=== PATIENT | female | born 1985 | race Caucasian/White ===

== ENCOUNTER 2017-12-28 03:35 | Inpatient (IN) | payer SELFPAY ==
[2017-12-28 04:04] LABS: Absolute Lymphocytes (CBC) 2.5 K/uL (0.7-4.9); Absolute Monocytes 0.9 K/uL (0.1-1.3); Absolute Neutrophil 5.8 K/uL (1.8-8.0); Eosinophils % 2.6 % (0-4.4); Hematocrit 35.1 % (36.0-45.0); Lymphocytes % 26.1 % (15.3-44.8); MCH 24.5 pg (27.0-35.0); MCV 77.1 fL (80-100); MPV 7.8 fL (7.6-11.3); Monocytes % 9.4 % (3.3-12.3); RBC Red Blood Cell Count 4.56 M/uL (3.86-4.86)
[2017-12-28] MEDS ORDERED: ONDANSETRON 4 MG/2 ML VIAL ONE (04:20)
[2017-12-28 04:26] LABS: ALT/SGPT 21 U/L (12-78); AST/SGOT 26 U/L (15-37); Albumin 3.8 g/dL (3.4-5.0); Alkaline Phosphatase 107 U/L (45-117); BUN Blood Urea Nitrogen 9 mg/dL (7-18); Bicarbonate 25 mmol/L (21-32); Bilirubin Direct 0.2 mg/dL (0-0.2); Bilirubin Total 0.8 mg/dL (0.2-1.0); Glucose Level 150 mg/dL (74-106); Lipase 4996 U/L (73-393); Potassium 3.2 mmol/L (3.5-5.1); Protein, Total 8.4 g/dL (6.4-8.2); Sodium Level 136 mmol/L (136-145)
[2017-12-28] MEDS ORDERED: DIPHENHYDRAMINE 50 MG/ML VIAL ONE (04:36)
--- NOTE | 2017-12-28 07:38 | EDPHYS ---
Physician Documentation [facility] Name: Kathy Mendoza Age: 32 yrs Sex: Female : 1985 Arrival Date: 12/28/2017 Time: 03:36 Bed 8 Private MD: None, None ED Physician Jayson Lobo HPI: 12/28 07:34 This 32 yrs old Female presents to ER via EMS with complaints of Abdominal ps1 Pain. 07:34 pt is long standing alcoholic with history of pancreatitis. Patient stopped drinking 48 ps1 hours ago and went into rehab. She started having LUQ and epigastric pain tonight. Pain rated as severe. Radiating to back. Associated with nausea. Feels like previous episodes of pancreatitis. 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 tw2 Historical: - Allergies: 03:40 Latex, Natural Rubber; fc 03:40 Iodine; fc 03:40 PENICILLINS; fc - Home Meds: 03:40 lithium carbonate 300 mg Oral TbER 1 tab 3 times per day [Active]; gabapentin 600 mg fc oral tab 1 tab daily [Active]; naltrexone 50 mg oral tab 1 tab once daily [Active]; - PMHx: 03:40 ETOH abuse; Pancreatitis; Bipolar disorder; fc - PSHx: 03:40 ; Gastric Bypass; fc - Immunization history:: Last tetanus immunization: unknown. - Social history:: Smoking status: Patient uses tobacco products, smokes one-half pack cigarettes per day. - Ebola Screening: : Patient negative for fever greater than or equal to 101.5 degrees Fahrenheit, and additional compatible Ebola Virus Disease symptoms Patient denies exposure to infectious person Patient denies travel to an Ebola-affected area in the 21 days before illness onset. ROS: 07:34 Constitutional: Negative for fever, chills, and weight loss, Eyes: Negative for injury, ps1 pain, redness, and discharge, Cardiovascular: Negative for chest pain, palpitations, and edema, Respiratory: Negative for shortness of breath, cough, wheezing, and pleuritic chest pain. 07:34 Back: Negative for injury and pain, MS/Extremity: Negative for injury and deformity, Skin: Negative for injury, rash, and discoloration, Neuro: Negative for headache, weakness, numbness, tingling, and seizure. 07:34 Abdomen/GI: Positive for abdominal pain, nausea. Exam: 07:34 Constitutional: This is a well developed, well nourished patient who is awake, alert, ps1 and in no acute distress. Head/Face: Normocephalic, atraumatic. Eyes: Pupils equal round and reactive to light, extra-ocular motions intact. Lids and lashes normal. Conjunctiva and sclera are non-icteric and not injected. Chest/axilla: Normal chest wall appearance and motion. Nontender with no deformity. No lesions are appreciated. Cardiovascular: Regular rate and rhythm. No gallops, murmurs, or rubs. Normal PMI, no JVD. No pulse deficits. Respiratory: Lungs have equal breath sounds bilaterally, clear to auscultation and percussion. No rales, rhonchi or wheezes noted. No increased work of breathing, no retractions or nasal flaring. 07:34 MS/ Extremity: Pulses equal, no cyanosis. Neurovascular intact. Full, normal range of motion. Neuro: Awake and alert, GCS 15, oriented to person, place, time, and situation. Cranial nerves II-XII grossly intact. Sensory grossly intact. 07:34 Abdomen/GI: Inspection: abdomen appears normal, Bowel sounds: normal, Palpation: moderate abdominal tenderness, in the epigastric area and left upper quadrant. Vital Signs: 03:40 BP 154 / 111; Pulse 75; Resp 18; Temp 97.6(O); Pulse Ox 100% on R/A; Weight 74.84 kg fc (R); Height 5 ft. 6 in. (167.64 cm) (R); Pain 10/10; 04:39 BP 162 / 125; Pulse 87; Resp 20; Pulse Ox 99% on R/A; Pain 10/10; ak1 05:30 BP 152 / 97; Pulse 56; Resp 18; Pulse Ox 100% on R/A; ea 07:00 BP 178 / 100; Pulse 88; Resp 17; Pulse Ox 99% ; tw2 08:21 BP 172 / 116; Pulse 83; Resp 17; Pulse Ox 100% on R/A; tw2 09:22 BP 148 / 93; Pulse 60; Resp 17; Pulse Ox 100% on R/A; tw2 10:30 BP 162 / 86; Pulse 60; Resp 17; Pulse Ox 100% on R/A; tw2 11:26 BP 150 / 80; Pulse 61; Resp 17; Pulse Ox 100% on R/A; tw2 03:40 Body Mass Index 26.63 (74.84 kg, 167.64 cm) MDM: 04:02 Patient medically screened. ps1 07:34 Data reviewed: vital signs, nurses notes. ED course: pain addressed. lipase and CT c/w ps1 acute pancreatitis. Admitted to Dr. Castanon.. 12/28 03:48 Order name: Hepatic Function; Complete Time: 04:34 ps1 12/28 03:48 Order name: Basic Metabolic Panel; Complete Time: 04:34 ps1 12/28 03:48 Order name: CBC with Diff; Complete Time: 04:34 ps1 12/28 03:48 Order name: Lipase; Complete Time: 04:34 ps1 12/28 03:48 Order name: Urine Microscopic Only ps1 12/28 04:35 Order name: CT Abd/Pelvis - Without Cont ps1 12/28 03:48 Order name: IV Saline Lock; Complete Time: 03:53 ps1 12/28 03:48 Order name: Labs collected and sent; Complete Time: 03:53 ps1 Administered Medications: 04:22 Drug: Zofran 4 mg Route: IVP; Site: right antecubital; ak1 04:38 Follow up: Response: No adverse reaction ak1 04:38 Drug: Benadryl 50 mg Route: IVP; Site: right antecubital; ak1 04:47 Follow up: Response: No adverse reaction ak1 08:16 Drug: Phenergan 25 mg Route: IVP; Site: right antecubital; tw2 09:19 Follow up: Response: No adverse reaction; Nausea is decreased tw2 11:26 Drug: morphine 2 mg Route: IVP; Site: right antecubital; tw2 11:52 Follow up: Response: No adverse reaction tw2 Disposition: 12/28/17 07:38 Hospitalization ordered by Brooke Castanon for Inpatient Admission. Preliminary diagnosis is Alcohol induced acute pancreatitis. - Bed requested for Telemetry/MedSurg (Inpatient). - Status is Inpatient Admission. tw2 - Condition is Fair. - Problem is an acute exacerbation. - Symptoms have improved. UTI on Admission? No Signatures: Dispatcher [employer] EDKourtney Salinas RN RN dw Chretien, Felicia, RN RN fc Krenek, Amber, RN RN ak1 Viji Marie RN RN tw2 Jayson Lobo MD MD ps1 Corrections: (The following items were deleted from the chart) 11:46 07:38 Hospitalization Ordered by Brooke Castanon MD for Inpatient Admission. Preliminary dw diagnosis is Alcohol induced acute pancreatitis. Bed requested for Telemetry/MedSurg (Inpatient). Status is Inpatient Admission. Condition is Fair. Problem is an acute exacerbation. Symptoms have improved. UTI on Admission? No. ps1 12:23 11:46 12/28/2017 07:38 Hospitalization Ordered by Brooke Castanon MD for Inpatient tw2 Admission. Preliminary diagnosis is Alcohol induced acute pancreatitis. Bed requested for Telemetry/MedSurg (Inpatient). Status is Inpatient Admission. Condition is Fair. Problem is an acute exacerbation. Symptoms have improved. UTI on Admission? No. dw
--- NOTE | 2017-12-28 07:38 | ER ---
Nurse's Notes [facility] Name: Kathy Mendoza Age: 32 yrs Sex: Female : 1985 Arrival Date: 12/28/2017 Time: 03:36 Bed 8 Private MD: None, None Diagnosis: Alcohol induced acute pancreatitis Presentation: 12/28 03:36 Presenting complaint: EMS states: that the patient is complaining of abd pain that fc radiates to her back. Also having nausea and vomiting. Pt has been without ETOH x 48 hrs. Transition of care: patient was not received from another setting of care. Onset of symptoms was December 28, 2017. Risk Assessment: Do you want to hurt yourself or someone else? Patient reports no desire to harm self or others. Initial Sepsis Screen: Does the patient meet any 2 criteria? No. Patient's initial sepsis screen is negative. Does the patient have a suspected source of infection? No. Patient's initial sepsis screen is negative. Care prior to arrival: None. 03:36 Method Of Arrival: EMS: [facility] 03:36 Acuity: JEFFY 3 fc Triage Assessment: 03:41 General: Appears uncomfortable, unkempt, Behavior is cooperative, appropriate for age, fc anxious. Pain: Complains of pain in abdomen Pain currently is 10 out of 10 on a pain scale. Quality of pain is described as aching, crampy, sharp, Is continuous. EENT: No deficits noted. Neuro: Level of Consciousness is awake, alert, obeys commands, Oriented to person, place, time, situation. Cardiovascular: No deficits noted. Respiratory: No deficits noted. GI: Reports lower abdominal pain, upper abdominal pain, nausea, vomiting. : No deficits noted. Derm: Skin is pink, warm \T\ dry. Musculoskeletal: Circulation, motion, and sensation intact. Capillary refill < 3 seconds, Range of motion: intact in all extremities. 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 tw2 Historical: - Allergies: 03:40 Latex, Natural Rubber; fc 03:40 Iodine; fc 03:40 PENICILLINS; fc - Home Meds: 03:40 lithium carbonate 300 mg Oral TbER 1 tab 3 times per day [Active]; gabapentin 600 mg fc oral tab 1 tab daily [Active]; naltrexone 50 mg oral tab 1 tab once daily [Active]; - PMHx: 03:40 ETOH abuse; Pancreatitis; Bipolar disorder; fc - PSHx: 03:40 ; Gastric Bypass; fc - Immunization history:: Last tetanus immunization: unknown. - Social history:: Smoking status: Patient uses tobacco products, smokes one-half pack cigarettes per day. - Ebola Screening: : Patient negative for fever greater than or equal to 101.5 degrees Fahrenheit, and additional compatible Ebola Virus Disease symptoms Patient denies exposure to infectious person Patient denies travel to an Ebola-affected area in the 21 days before illness onset. Screenin:42 Abuse screen: Denies threats or abuse. Nutritional screening: No deficits noted. fc Tuberculosis screening: No symptoms or risk factors identified. 03:49 Fall Risk None identified. ak1 Assessment: 03:48 General: Appears in no apparent distress. uncomfortable, Behavior is cooperative, ak1 anxious. Pain: Complains of pain in abdomen. Neuro: No deficits noted. Cardiovascular: No deficits noted. Respiratory: No deficits noted. GI: Bowel sounds present X 4 quads. Abd is soft and non tender X 4 quads. : No signs and/or symptoms were reported regarding the genitourinary system. EENT: No signs and/or symptoms were reported regarding the EENT system. Derm: No signs and/or symptoms reported regarding the dermatologic system. Musculoskeletal: No signs and/or symptoms reported regarding the musculoskeletal system. 05:10 Reassessment: Patient appears in no apparent distress at this time. No changes from ak1 previously documented assessment. Patient is alert, oriented x 3, equal unlabored respirations, skin warm/dry/pink. pt waiting to go to CT. 05:57 Reassessment: Patient appears in no apparent distress at this time. pt up and ak1 ambulating to restroom with steady gait X2 to try for urine sample, no success at this time. 07:00 Reassessment: Patient appears in no apparent distress at this time. Patient and/or tw2 family updated on plan of care and expected duration. Pain level reassessed. Patient is alert, oriented x 3, equal unlabored respirations, skin warm/dry/pink. 08:23 Reassessment: Patient appears in no apparent distress at this time. Patient and/or tw2 family updated on plan of care and expected duration. Pain level reassessed. Patient is alert, oriented x 3, equal unlabored respirations, skin warm/dry/pink. pt c/o nauseousness at this time. 09:23 Reassessment: Patient appears in no apparent distress at this time. No changes from tw2 previously documented assessment. Patient and/or family updated on plan of care and expected duration. Pain level reassessed. Patient is alert, oriented x 3, equal unlabored respirations, skin warm/dry/pink. 10:30 Reassessment: Patient appears in no apparent distress at this time. No changes from tw2 previously documented assessment. Patient and/or family updated on plan of care and expected duration. Pain level reassessed. Patient is alert, oriented x 3, equal unlabored respirations, skin warm/dry/pink. 11:26 Reassessment: Patient appears in no apparent distress at this time. No changes from tw2 previously documented assessment. Patient and/or family updated on plan of care and expected duration. Pain level reassessed. Patient is alert, oriented x 3, equal unlabored respirations, skin warm/dry/pink. Vital Signs: 03:40 BP 154 / 111; Pulse 75; Resp 18; Temp 97.6(O); Pulse Ox 100% on R/A; Weight 74.84 kg fc (R); Height 5 ft. 6 in. (167.64 cm) (R); Pain 10/10; 04:39 BP 162 / 125; Pulse 87; Resp 20; Pulse Ox 99% on R/A; Pain 10/10; ak1 05:30 BP 152 / 97; Pulse 56; Resp 18; Pulse Ox 100% on R/A; ea 07:00 BP 178 / 100; Pulse 88; Resp 17; Pulse Ox 99% ; tw2 08:21 BP 172 / 116; Pulse 83; Resp 17; Pulse Ox 100% on R/A; tw2 09:22 BP 148 / 93; Pulse 60; Resp 17; Pulse Ox 100% on R/A; tw2 10:30 BP 162 / 86; Pulse 60; Resp 17; Pulse Ox 100% on R/A; tw2 11:26 BP 150 / 80; Pulse 61; Resp 17; Pulse Ox 100% on R/A; tw2 03:40 Body Mass Index 26.63 (74.84 kg, 167.64 cm) ED Course: 03:36 Patient arrived in ED. fc 03:36 None, None is Private Physician. fc 03:38 Triage completed. fc 03:41 Arm band placed on Patient placed in an exam room, on a stretcher. fc 03:42 Patient has correct armband on for positive identification. Bed in low position. Call fc light in reach. Side rails up X2. 03:47 Jayson Lobo MD is Attending Physician. ps1 03:49 Inserted saline lock: 20 gauge in right forearm, using aseptic technique. ,using ak1 aseptic technique. placed by Marisol Gill RN Blood collected. 03:50 Edie Mckenzie, TANNA is Primary Nurse. ak1 04:39 No provider procedures requiring assistance completed. ak1 06:39 CT Abd/Pelvis - Without Cont In Process Unspecified. EDMS 07:17 Primary Nurse role handed off by Edie Mckenzie RN tw2 07:17 Viji Marie RN is Primary Nurse. tw2 07:37 Brooke Castanon MD is Hospitalizing Provider. ps1 11:50 Patient admitted, IV remains in place. tw2 11:51 Report given to TANNA Ravi on 2nd floor, need for urine analysis as outstanding from ER. tw2 Administered Medications: 04:22 Drug: Zofran 4 mg Route: IVP; Site: right antecubital; ak1 04:38 Follow up: Response: No adverse reaction ak1 04:38 Drug: Benadryl 50 mg Route: IVP; Site: right antecubital; ak1 04:47 Follow up: Response: No adverse reaction ak1 08:16 Drug: Phenergan 25 mg Route: IVP; Site: right antecubital; tw2 09:19 Follow up: Response: No adverse reaction; Nausea is decreased tw2 11:26 Drug: morphine 2 mg Route: IVP; Site: right antecubital; tw2 11:52 Follow up: Response: No adverse reaction tw2 Outcome: 07:38 Decision to Hospitalize by Provider. ps1 11:50 Admitted to Med/surg accompanied by tech, via wheelchair, room 203, with chart, Report tw2 called to TANNA Ravi 11:50 Condition: stable 11:50 Instructed on the need for admit. 12:23 Patient left the ED. tw2 Signatures: Dispatcher [employer] Mary Reilly RN RN Edie Mckenzie RN RN ak1 Viji Marie, RN RN tw2 Marisol Barlow, RN RN Jayson Hernandez MD MD ps1
[2017-12-28] MEDS ORDERED: PROMETHAZINE 25 MG/ML VIAL ONE (08:15)
--- NOTE | 2017-12-28 10:14 | RAD REPORT ---
EXAM DESCRIPTION: CT - Abdomen Pelvis Wo Contrast - 12/28/2017 10:06 am CLINICAL HISTORY: Abdominal pain generalized abdominal pain surgery date 6+ months gastric bypass n ausea COMPARISON: None TECHNIQUE: Computed axial tomography of the abdomen and pelvis was obtained. IV and oral contrast we re not requested. A preliminary report was generated by [facility] and reviewed prior to this dictation All CT scans are performed using dose optimization technique as appropriate and may include automated exposure control or mA/KV adjustment according to patient size. FINDINGS: The evaluation of solid organs, vessels and bowel is limited secondary to the lack of con trast administration. The pancreas is inhomogeneous. A moderate stranding is present within the peripancreatic fat. A pseud ocyst is not seen. The gallbladder has been removed The liver, spleen, adrenals are normal. Tiny umbilical hernia is present. Postsurgical changes of a gastric bypass are present The appendix is normal. There is no evidence of diverticulitis. IMPRESSION: Moderate pancreatitis
[2017-12-28] MEDS ORDERED: MORPHINE 4 MG/ML SYR ONE (11:25)
[2017-12-28] MEDS: ONDANSETRON 4 MG/2 ML VIAL IV PRN ×2 (12:18→20:58)
[2017-12-28] MEDS: NA CHLORIDE 0.9% 1,000 ML IV SCH (12:18)
[2017-12-28 12:22] VITALS: BMI 28.3
[2017-12-28] MEDS: MORPHINE 4 MG/ML SYR IV PRN ×2 (15:02→20:58)
[2017-12-28] MEDS: KCL 20 MEQ/100 mL IVPB 20 MEQ/100 ML BAG IV SCH ×2 (15:02→21:39)
--- NOTE | 2017-12-28 17:31 | P.HP ---
Certification for Inpatient Patient admitted to: Inpatient With expected LOS: >2 Midnights Patient will require the following post-hospital care: None Practitioner: I am a practitioner with admitting privileges, knowledge of patient current condition, hospital course, and medical plan of care. Services: Services provided to patient in accordance with Admission requirements found in Title 42 Section 412.3 of the Code of Federal Regulations Patient History Date of Service: 12/28/17 Primary Care Provider: OOT Reason for admission: Abd pain History of Present Illness: This is a 32-year-old female with significant past medical history of alcohol abuse and chronic pancreatitis who presented to the ED complaining of having some epigastric pain medicine vomiting that started last night. Patient stated that she has been trying to get into alcohol rehab program and has quit drinking about 48 hr ago. However last night she started having some excruciating epigastric pain along with nausea and vomiting. Patient states that she has similar symptoms in the past and was diagnosed with pancreatitis and was treated with IV fluids and nausea medication. Patient denies having any fever chills chest pain or shortness of breath at this time. Allergies iodine Allergy (Verified 12/28/17 08:31) Itching Latex, Natural Rubber Allergy (Verified 12/28/17 08:31) Itching Penicillins Allergy (Verified 12/28/17 08:31) Itching Home Medications: Gabapentin [Neurontin] 600 mg PO DAILY 12/28/17 [place] Carbonate [Lithotabs 300MG] 300 mg PO TID 12/28/17 Naltrexone HCl 50 mg PO DAILY 12/28/17 - Past Medical/Surgical History Has patient received pneumonia vaccine in the past: No Diabetic: No -: ETOH Abuse -: Pancreatitis -: Bipolar Disorder -: -: Gastric Bypass - Social History Smoking Status: Current some day smoker Alcohol use: Yes CD- Drugs: No Caffeine use: Yes Place of Residence: Homeless Review of Systems General: As per HPI Physical Examination - Vital Signs Temperature: 97.9 F Blood Pressure: 144/78 Pulse: 83 Respirations: 17 Pulse Ox (%): 99 - Physical Exam General: Alert, In no apparent distress, Oriented x3 HEENT: Atraumatic, PERRLA, Mucous membr. moist/pink, EOMI, Sclerae nonicteric Neck: Supple, 2+ carotid pulse no bruit, No LAD, Without JVD or thyroid abnormality Respiratory: Clear to auscultation bilaterally, Normal air movement Cardiovascular: Regular rate/rhythm, Normal S1 S2 Gastrointestinal: Normal bowel sounds, Tenderness Musculoskeletal: No tenderness Integumentary: No rashes Neurological: Normal speech, Normal strength at 5/5 x4 extr, Normal tone Lymphatics: No axilla or inguinal lymphadenopathy - Studies Laboratory Data (last 24 hrs) 12/28/17 03:46: WBC 9.5, Hgb 11.2 L, Hct 35.1 L, Plt Count 372 12/28/17 03:46: Sodium 136, Potassium 3.2 L, BUN 9, Creatinine 0.70, Glucose 150 H, Total Bilirubin 0.8, AST 26, ALT 21, Alkaline Phosphatase 107, Lipase 4996 H Assessment and Plan - Problems (Diagnosis) (1) Alcohol induced acute pancreatitis Current Visit: Yes Status: Acute Plan: Abd pain most likely 2.2 to alcohol induced acute pancreatitis -IV fluids, pain mgmt and NPO for now -GI consulted. Appreciated Reccs -Lipase is > 4000 Qualifiers: Acute pancreatitis complication: no infection or necrosis Qualified Code(s) : K85.20 - Alcohol induced acute pancreatitis without necrosis or infection (2) Alcohol abuse Current Visit: Yes Status: Acute Plan: Alcohol abuse. Wants to enroll in rehab. States last drink 48hrs ago -ativan PRN For alcohol WD Discharge Plan: Home Plan to discharge in: 48 Hours - Advance Directives Does patient have a Living Will: No Does patient have a Durable POA for Healthcare: No - Code Status/Comfort Care Code Status Assessed: Yes Critical Care: No
[2017-12-28] MEDS: LORazepam 2 MG/ML VIAL IV PRN (21:37)
[2017-12-29] MEDS: ONDANSETRON 4 MG/2 ML VIAL IV PRN ×4 (00:19→22:27)
[2017-12-29] MEDS: NA CHLORIDE 0.9% 1,000 ML IV SCH ×5 (00:24→23:48)
[2017-12-29] MEDS ORDERED: METOPROLOL TARTRATE 5 MG/5 ML INJ IV PRN ×2 (00:34→00:57)
[2017-12-29] MEDS: LORazepam 2 MG/ML VIAL IV PRN ×7 (01:02→22:33)
[2017-12-29] MEDS: METOPROLOL TARTRATE 5 MG/5 ML INJ IV SCH ×6 (01:37→20:22)
[2017-12-29] MEDS ORDERED: METOPROLOL TARTRATE 5 MG/5 ML INJ IV STA (02:41)
[2017-12-29] MEDS: MORPHINE 4 MG/ML SYR IV PRN ×4 (03:01→22:27)
[2017-12-29 06:03] LABS: Absolute Lymphocytes (CBC) 1.4 K/uL (0.7-4.9); Absolute Monocytes 1.1 K/uL (0.1-1.3); Absolute Neutrophil 11.4 K/uL (1.8-8.0); Basophils % 0.4 % (0-1.3); Eosinophils % 0.9 % (0-4.4); Hematocrit 35.6 % (36.0-45.0); Lymphocytes % 9.6 % (15.3-44.8); MCH 24.6 pg (27.0-35.0); MCV 78.2 fL (80-100); MPV 7.9 fL (7.6-11.3); RBC Red Blood Cell Count 4.55 M/uL (3.86-4.86)
[2017-12-29] MEDS: chlordiazePOXIDE HCl 5 MG CAP PO SCH ×4 (06:14→23:54)
[2017-12-29 06:20] LABS: ALT/SGPT 17 U/L (12-78); AST/SGOT 19 U/L (15-37); Albumin 3.5 g/dL (3.4-5.0); Alkaline Phosphatase 90 U/L (45-117); BUN Blood Urea Nitrogen 8 mg/dL (7-18); Bicarbonate 24 mmol/L (21-32); Bilirubin Total 0.6 mg/dL (0.2-1.0); Glucose Level 122 mg/dL (74-106); Phosphorus 1.7 mg/dL (2.5-4.9); Potassium 3.6 mmol/L (3.5-5.1); Protein, Total 7.5 g/dL (6.4-8.2); Sodium Level 136 mmol/L (136-145)
[2017-12-29] MEDS ORDERED: POTASSIUM PHOS IN 0.9 % NACL 15 MMOL/250 ML BAG IV ONE (06:27)
[2017-12-29] MEDS ORDERED: KCL 20 MEQ/100 mL IVPB 20 MEQ/100 ML BAG IV SCH (07:00)
[2017-12-29 08:44] LABS: Urine Appearance CLOUDY; Urine Blood 1+ (NEG); Urine Color DK YELLOW; Urine Glucose NEGATIVE (NEG); Urine Protein 1+ (NEG); Urine Specific Gravity >=1.030 (1.005-1.030); Urine Urobilinogen 0.2 mg/dL (0.2-1.0)
[2017-12-29] MEDS ORDERED: HOME MED 1 EA UNK (Gabapentin [Neurontin] 600 MG) PO SCH (09:00)
[2017-12-29 09:19] LABS: Urine Bilirubin NEGATIVE (NEG); Urine Microscopic Reflex ORDER UMIC
[2017-12-29 09:27] LABS: Urine Bacteria 20-50 /HPF (<20); Urine Culture Reflex Order REFLEXED; Urine Mucus 2+ /HPF (NONE SEEN)
[2017-12-29] MEDS: LITHIUM CARBONATE 300 MG TAB PO SCH ×3 (09:58→20:22)
[2017-12-29] MEDS: GABAPENTIN 300 MG CAP PO SCH (09:59)
--- NOTE | 2017-12-29 12:16 | P.PN ---
Subjective Date of Service: 12/29/17 Primary Care Provider: ILDEFONSO Chief Complaint: Abd pain Patient seen and examined at bedside with RN. Case reviewed. Chart reviewed. Patient currently is complaining of having some abdominal pain. Patient also overnight had severe alcohol withdrawal and was started on Librium. Review of Systems General: As per HPI Physical Examination - Vital Signs Temperature: 98.1 F Blood Pressure: 173/106 Pulse: 91 Respirations: 20 Pulse Ox (%): 100 - Physical Exam General: Alert, In no apparent distress HEENT: Atraumatic, PERRLA, EOMI Neck: Supple, JVD not distended Respiratory: Clear to auscultation bilaterally, Normal air movement Cardiovascular: Regular rate/rhythm, Normal S1 S2 Gastrointestinal: Normal bowel sounds, Tenderness Musculoskeletal: No tenderness Integumentary: No rashes Neurological: Normal speech, Normal tone, Normal affect Lymphatics: No axilla or inguinal lymphadenopathy - Studies Medications List Reviewed: Yes Assessment & Plan - Problems (Diagnosis) (1) Alcohol induced acute pancreatitis Current Visit: Yes Status: Acute Plan: Abd pain most likely 2.2 to alcohol induced acute pancreatitis -IV fluids, pain mgmt and NPO for now -GI consulted. Appreciated Reccs -Lipase is > 4000 Qualifiers: Acute pancreatitis complication: no infection or necrosis Qualified Code(s) : K85.20 - Alcohol induced acute pancreatitis without necrosis or infection (2) Alcohol abuse Current Visit: Yes Status: Acute Plan: Alcohol abuse. Wants to enroll in rehab. States last drink 48hrs ago -ativan PRN For alcohol WD -Now on Librium as well Discharge Plan: Home Plan to discharge in: 24 Hours - Code Status/Comfort Care Code Status Assessed: Yes Critical Care: No
[2017-12-30] MEDS: METOPROLOL TARTRATE 5 MG/5 ML INJ IV SCH ×6 (00:48→20:40)
[2017-12-30] MEDS: LORazepam 2 MG/ML VIAL IV PRN ×4 (02:43→13:48)
[2017-12-30] MEDS: MORPHINE 4 MG/ML SYR IV PRN ×2 (04:39→11:28)
[2017-12-30] MEDS: NA CHLORIDE 0.9% 1,000 ML IV SCH ×4 (04:41→23:20)
[2017-12-30] MEDS: ONDANSETRON 4 MG/2 ML VIAL IV PRN ×2 (04:44→13:47)
[2017-12-30 04:57] LABS: Absolute Lymphocytes (CBC) 1.4 K/uL (0.7-4.9); Absolute Monocytes 1.1 K/uL (0.1-1.3); Absolute Neutrophil 9.3 K/uL (1.8-8.0); Basophils % 0.6 % (0-1.3); Eosinophils % 1.9 % (0-4.4); Hematocrit 34.6 % (36.0-45.0); Lymphocytes % 11.9 % (15.3-44.8); MCH 24.2 pg (27.0-35.0); MCV 77.7 fL (80-100); MPV 7.8 fL (7.6-11.3); Monocytes % 9.3 % (3.3-12.3); RBC Red Blood Cell Count 4.45 M/uL (3.86-4.86)
[2017-12-30 05:23] LABS: ALT/SGPT 12 U/L (12-78); AST/SGOT 15 U/L (15-37); Albumin 3.2 g/dL (3.4-5.0); Alkaline Phosphatase 85 U/L (45-117); BUN Blood Urea Nitrogen 4 mg/dL (7-18); Bicarbonate 24 mmol/L (21-32); Bilirubin Total 0.6 mg/dL (0.2-1.0); Glucose Level 97 mg/dL (74-106); Lipase 878 U/L (73-393); Magnesium 1.7 mg/dL (1.8-2.4); Phosphorus 1.6 mg/dL (2.5-4.9); Potassium 3.8 mmol/L (3.5-5.1); Protein, Total 7.1 g/dL (6.4-8.2); Sodium Level 138 mmol/L (136-145)
[2017-12-30] MEDS: chlordiazePOXIDE HCl 5 MG CAP PO SCH ×4 (05:41→23:20)
[2017-12-30] MEDS ORDERED: MAGNESIUM SULFATE 1 gm IVPB 1 GM/100 ML BAG IV ONE (05:54)
[2017-12-30] MEDS ORDERED: KCL 20 MEQ/100 mL IVPB 20 MEQ/100 ML BAG IV SCH (09:00)
[2017-12-30] MEDS: GABAPENTIN 300 MG CAP PO SCH (09:26)
[2017-12-30] MEDS: LITHIUM CARBONATE 300 MG TAB PO SCH ×3 (09:27→20:40)
--- NOTE | 2017-12-30 14:51 | P.PN ---
Subjective Date of Service: 12/30/17 Primary Care Provider: ILDEFONSO Chief Complaint: Abd pain Patient seen and examined at bedside with RN. Case reviewed. Chart reviewed. Patient currently is complaining of having some nasuea. No complains to offer overnight. Review of Systems General: As per HPI Physical Examination - Vital Signs Temperature: 98.1 F Blood Pressure: 131/81 Pulse: 99 Respirations: 20 Pulse Ox (%): 100 - Physical Exam General: Alert, In no apparent distress HEENT: Atraumatic, PERRLA, EOMI Neck: Supple, JVD not distended Respiratory: Clear to auscultation bilaterally, Normal air movement Cardiovascular: Regular rate/rhythm, Normal S1 S2 Gastrointestinal: Normal bowel sounds, No tenderness Musculoskeletal: No tenderness Integumentary: No rashes Neurological: Normal speech, Normal tone, Normal affect Lymphatics: No axilla or inguinal lymphadenopathy - Studies Medications List Reviewed: Yes Assessment & Plan - Problems (Diagnosis) (1) Alcohol induced acute pancreatitis Current Visit: Yes Status: Acute Plan: Abd pain most likely 2.2 to alcohol induced acute pancreatitis -IV fluids, pain mgmt with PO meds now -Advance diet to CLD -GI consulted. Appreciated Reccs -Lipase is 800 Qualifiers: Acute pancreatitis complication: no infection or necrosis Qualified Code(s) : K85.20 - Alcohol induced acute pancreatitis without necrosis or infection (2) Alcohol abuse Current Visit: Yes Status: Acute Plan: Alcohol abuse. Wants to enroll in rehab. States last drink 48hrs ago -ativan PRN For alcohol WD -Now on Librium as well Discharge Plan: Home Plan to discharge in: 24 Hours - Code Status/Comfort Care Code Status Assessed: Yes Critical Care: No
[2017-12-30] MEDS: TRAMADOL HCL 50 MG TAB PO PRN ×2 (15:59→22:01)
[2017-12-30 19:40] VITALS: O2SAT 98
[2017-12-31] MEDS: NA CHLORIDE 0.9% 1,000 ML IV SCH ×4 (01:00→14:20)
[2017-12-31] MEDS: METOPROLOL TARTRATE 5 MG/5 ML INJ IV SCH ×4 (01:52→12:55)
[2017-12-31] MEDS: TRAMADOL HCL 50 MG TAB PO PRN ×2 (04:48→10:37)
[2017-12-31 05:01] LABS: Absolute Lymphocytes (CBC) 1.2 K/uL (0.7-4.9); Absolute Neutrophil 5.6 K/uL (1.8-8.0); Basophils % 0.6 % (0-1.3); Eosinophils % 3.4 % (0-4.4); Hematocrit 28.9 % (36.0-45.0); MCH 24.8 pg (27.0-35.0); MPV 7.8 fL (7.6-11.3); Monocytes % 12.2 % (3.3-12.3); RBC Red Blood Cell Count 3.71 M/uL (3.86-4.86)
[2017-12-31 05:13] LABS: ALT/SGPT 22 U/L (12-78); AST/SGOT 31 U/L (15-37); Albumin 2.6 g/dL (3.4-5.0); Alkaline Phosphatase 78 U/L (45-117); BUN Blood Urea Nitrogen 4 mg/dL (7-18); Bicarbonate 25 mmol/L (21-32); Bilirubin Total 0.3 mg/dL (0.2-1.0); Glucose Level 89 mg/dL (74-106); Magnesium 1.7 mg/dL (1.8-2.4); Phosphorus 1.9 mg/dL (2.5-4.9); Potassium 3.3 mmol/L (3.5-5.1); Sodium Level 140 mmol/L (136-145)
[2017-12-31] MEDS: chlordiazePOXIDE HCl 5 MG CAP PO SCH ×2 (05:33→12:08)
[2017-12-31] MEDS ORDERED: MAGNESIUM SULFATE 1 gm IVPB 1 GM/100 ML BAG IV ONE ×2 (06:45→07:30)
[2017-12-31] MEDS ORDERED: KCL 20 MEQ/100 mL IVPB 20 MEQ/100 ML BAG IV SCH (08:00)
[2017-12-31] MEDS: LITHIUM CARBONATE 300 MG TAB PO SCH ×2 (09:06→14:39)
[2017-12-31] MEDS: GABAPENTIN 300 MG CAP PO SCH (09:06)
[2017-12-31] MEDS ORDERED: POTASSIUM PHOS IN 0.9 % NACL 15 MMOL/250 ML BAG IV ONE (12:00)
--- NOTE | 2017-12-31 12:06 | P.DS ---
Admission Date: 12/28/17 Discharge Date: 12/31/17 Primary Care Provider: OOT Disposition: ROUTINE DISCHARGE Discharge Condition: GOOD Reason for Admission: Abd pain Consultations: GI - Problems (1) Alcohol induced acute pancreatitis Current Visit: Yes Status: Resolved Qualifiers: Acute pancreatitis complication: no infection or necrosis Qualified Code(s) : K85.20 - Alcohol induced acute pancreatitis without necrosis or infection (2) Alcohol abuse Current Visit: Yes Status: Chronic Brief History of Present Illness: This is a 32-year-old female with significant past medical history of alcohol abuse and chronic pancreatitis who presented to the ED complaining of having some epigastric pain medicine vomiting that started last night. Patient stated that she has been trying to get into alcohol rehab program and has quit drinking about 48 hr ago. However last night she started having some excruciating epigastric pain along with nausea and vomiting. Patient states that she has similar symptoms in the past and was diagnosed with pancreatitis and was treated with IV fluids and nausea medication. Patient denies having any fever chills chest pain or shortness of breath at this time. Hospital Course: Overall During the hospital stay Patient remained stable. Pt was admitted to the hospital for Alcohol induced acute pancreatitis. Pt was kept NPO, IV pain medication and Iv fluids. Pt Lipase initialy was [id number] and improved markedly day 3 of hospitalization. GI was consulted who reccs advancing diet to CLD and if tolerated to GI bland. Pt tolerated diet well and Pain medication switched to oral. Pt did well overall day 4 and thus discharge to the rehab program for alcohol abuse. Pt educated extensively on Alcohola abuse and pancreatitis. Pt while in the hospital pt was also found to UTI and culture + for gram - rods. Pt was discharged on Levaquin 500mg daily for 5 days. Vital Signs/Physical Exam: Temp Pulse Resp BP Pulse Ox 97.1 F 103 H 20 124/75 99 12/31/17 08:00 12/31/17 09:07 12/31/17 08:00 12/31/17 09:07 12/31/17 08:00 General: Alert, In no apparent distress HEENT: Atraumatic, PERRLA, EOMI Neck: Supple, JVD not distended Respiratory: Clear to auscultation bilaterally, Normal air movement Cardiovascular: Regular rate/rhythm, Normal S1 S2 Gastrointestinal: Normal bowel sounds, No tenderness Musculoskeletal: No tenderness Integumentary: No rashes Neurological: Normal speech, Normal tone, Normal affect Lymphatics: No axilla or inguinal lymphadenopathy Laboratory Data at Discharge: WBC 8.1 K/uL (4.3-10.9) D 12/31/17 04:39 Hgb 9.2 g/dL (12.0-15.0) L 12/31/17 04:39 Hct 28.9 % (36.0-45.0) L D 12/31/17 04:39 Plt Count 251 K/uL (152-406) 12/31/17 04:39 Sodium 140 mmol/L (136-145) 12/31/17 04:39 Potassium 3.3 mmol/L (3.5-5.1) L 12/31/17 04:39 BUN 4 mg/dL (7-18) L 12/31/17 04:39 Creatinine 0.40 mg/dL (0.55-1.3) L 12/31/17 04:39 Glucose 89 mg/dL (74-106) 12/31/17 04:39 Phosphorus 1.9 mg/dL (2.5-4.9) L 12/31/17 04:39 Magnesium 1.7 mg/dL (1.8-2.4) L 12/31/17 04:39 Total Bilirubin 0.3 mg/dL (0.2-1.0) 12/31/17 04:39 AST 31 U/L (15-37) 12/31/17 04:39 ALT 22 U/L (12-78) 12/31/17 04:39 Alkaline Phosphatase 78 U/L (45-117) 12/31/17 04:39 Lipase 878 U/L (73-393) H 12/30/17 04:30 Home Medications: Gabapentin [Neurontin] 600 mg PO DAILY 12/28/17 Mack Carbonate [Lithotabs *] 300 mg PO TID 12/28/17 Naltrexone HCl 50 mg PO DAILY 12/28/17 levoFLOXacin [Levaquin] 500 mg PO DAILY #10 tab 12/31/17 New Medications: levoFLOXacin [Levaquin] 500 mg PO DAILY #10 tab Patient Discharge Instructions: Please f.u with PCP and GI in 1 to 2 week post discharge. New medication. Levaquin 500mg Daily for 10 days Diet: Barton Activity: Ad zayda Followup: Gilberto Hunt MD [ACTIVE - CAN ADMIT] - 1 Week
[2017-12-31 12:59] VITALS: BP 128/82
[2017-12-31 13:10] VITALS: TEMP 97.6
== END 2017-12-31 14:44 | disposition home or self-care (01) | DRG 439 ==
LOC: ER 03:35 → ERHOLD 07:48 → 2ND 11:51
PROVIDERS: ADMIT Family Medicine; ATTEND Family Medicine
DX: K85.20 Alcohol induced acute pancreatitis without necrosis or infection (principal); N39.0 Urinary tract infection, site not specified; F10.10 Alcohol abuse, uncomplicated; B96.89 Other specified bacterial agents as the cause of diseases classified elsewhere; F31.9 Bipolar disorder, unspecified; F17.210 Nicotine dependence, cigarettes, uncomplicated; Z91.041 Radiographic dye allergy status; Z91.040 Latex allergy status; Z88.0 Allergy status to penicillin; Z91.013 Allergy to seafood; Z98.84 Bariatric surgery status
CPT/HCPCS: 36415; 74176; 80048; 80053; 80076; 81003; 81015; 83690; 83735; 84100; 85025; 87077; 87086; 87088; 87186; 96374; 96375; 99285; J2405; J2550; J3475; J7030